=== PATIENT | female | born 1975 | race Caucasian/White ===

== ENCOUNTER 2018-01-13 08:35 | Outpatient (CLI) | payer OTHER | END 2018-01-13 10:41 | disposition home or self-care (01) | LOC: SONOGRAMA 08:35 | DX: E04.1 Nontoxic single thyroid nodule (principal) ==

== ENCOUNTER 2021-01-13 09:08 | Outpatient (CLI) | payer OTHER | END 2021-01-13 09:11 | disposition home or self-care (01) | LOC: SONOGRAMA 09:08 | PROVIDERS: ATTEND Pathology Anatomic Pathology & Clinical Pathology | DX: E04.1 Nontoxic single thyroid nodule (principal) ==